=== PATIENT | female | born 1995 | race Caucasian/White ===

== ENCOUNTER 2016-11-06 21:07 | Emergency (ER) | payer OTHER ==
[~2016-11-06] VITALS: Ht 165.1 cm; Wt 70.3 kg
[~2016-11-06 21:07] MED LIST: BACTRIM DS 8001 TA1 PO; BENTYL10 MG PO; BIRTH CONTROL1 EACH PO; CIPRO250 MG PO; DIFLUCAN150 MG PO; KEFLEX500 MG PO; MACROBID100 M1 PO; MOTRIN800 MG PO; NAPROSYN500 MG PO; PYRIDIUM200 MG PO
[2016-11-06 21:50] LABS: BASO % 0.3 % (0.0-1.0); EOS % 0.2 % (1.0-4.0); HEMATOCRIT 38.6 % (37.0-47.0); HEMOGLOBIN 13.4 g/dl (12.0-16.0); LYMPH # 1.9 10*3/uL (1.3-4.4); LYMPH % 15.2 % (27.0-41.0); MEAN CELL VOLUME 88.1 fl (81.0-99.0); MEAN CORPUSCULAR HGB 30.6 pg (27.0-31.0); MEAN CORPUSCULAR HGB CONC 34.7 g/dl (33.0-37.0); MEAN PLATELET VOLUME 9.8 fl (9.6-12.3); MONO # 0.6 10*3/uL (0.1-1.0); MONO % 4.7 % (3.0-9.0); NEUT # 9.7 10*3/uL (2.3-7.9); NEUT % 79.3 % (47.0-73.0); PLATELET COUNT AUTOMATED 226 10*3/uL (130-400); RED BLOOD COUNT 4.38 10*6/uL (4.10-5.10); RED CELL DISTRI WIDTH 11.9 % (0-14.5); WHITE BLOOD COUNT 12.2 10*3/uL (4.8-10.8)
[2016-11-06 21:50] LABS: BILIRUBIN NEGATIVE (NEGATIVE); BLOOD 1+ (NEGATIVE); CLARITY SL CLOUDY (CLEAR); COLOR YELLOW (YELLOW); GLUCOSE NEGATIVE (NEGATIVE); KETONE 2+ (NEGATIVE); LEUKO ESTERASE NEGATIVE (NEGATIVE); NITRITE NEGATIVE (NEGATIVE); PROTEIN NEGATIVE (NEGATIVE); SPECIFIC GRAVITY 1.015 (1.005-1.030)
[2016-11-06 21:57] LABS: EPITHELIAL CELLS TNTC
[2016-11-06 21:58] LABS: BACTERIA TRACE; MUCOUS TRACE; URINE REFLEX COMMENT YES (NO)
[2016-11-06 22:01] LABS: BUN 5 mg/dl (7-24); C-REACTIVE PROTEIN 4.35 MG/DL (0-0.3); CARBON DIOXIDE 23 mmol/L (21-32); CHLORIDE 104 mmol/L (98-107); EST GLOM FILT AFRICAN AMERICAN > 60 ml/min; GLUCOSE 116 mg/dL (65-99); POTASSIUM 3.4 mmol/L (3.5-5.1); SODIUM 138 mmol/L (136-145)
[2016-11-06] MEDS ORDERED: Phenergan25 MG PO (23:18)
== END 2016-11-06 23:28 | disposition home or self-care (01) ==
LOC: ED 21:07
PROVIDERS: Emergency Medicine Emergency Medical Services
DX: O26.891 Other specified pregnancy related conditions, first trimester (principal); K52.9 Noninfective gastroenteritis and colitis, unspecified; E86.0 Dehydration; Z3A.13 13 weeks gestation of pregnancy

== ENCOUNTER 2023-09-23 21:07 | Emergency (ER) | payer OTHER ==
[~2023-09-23] VITALS: Ht 162.5 cm; Wt 78.0 kg
[~2023-09-23 21:07] MED LIST changes: +Phenergan25 MG PO
[2023-09-23] MEDS ORDERED: CEPHALEXIN500 M1 PO (21:43)
[2023-09-23] MEDS ORDERED: Tdap Vaccine 0.5 ML SYR (Adult Vaccine) IM ONE (21:45)
== END 2023-09-23 22:05 | disposition home or self-care (01) ==
LOC: ED 21:07
DX: S61.211A Laceration without foreign body of left index finger without damage to nail, initial encounter (principal); W26.8XXA Contact with other sharp object(s), not elsewhere classified, initial encounter; Y93.89 Activity, other specified; Y92.89 Other specified places as the place of occurrence of the external cause; Y99.8 Other external cause status

== ENCOUNTER → 2023-11-30 | Outpatient (CLI) | payer OTHER ==
[~2023-11-30] MED LIST changes: +CEPHALEXIN500 M1 PO
== END ==
LOC: US 12:30
PROVIDERS: ATTEND Nurse Practitioner Primary Care
DX: N83.201 Unspecified ovarian cyst, right side (principal); N92.6 Irregular menstruation, unspecified